=== PATIENT | male | born 1985 | race Caucasian/White ===

== ENCOUNTER → 2018-07-24 | Outpatient (CLI) | payer MEDICAID | END | disposition home or self-care (01) | LOC: PREOP 05:49 | PROVIDERS: ATTEND Surgery | DX: Z01.818 Encounter for other preprocedural examination (principal) ==

== ENCOUNTER 2018-07-31 07:16 | Day surgery (SDC) | payer MEDICAID ==
[~2018-07-31] VITALS: Ht 172.7 cm; Wt 92.1 kg
[2018-07-31] MEDS ORDERED: LACTATED RINGERS 1,000 ML IV ONE (07:28)
[2018-07-31] MEDS ORDERED: LACTATED RINGERS 1,000 ML IV STA (07:49)
[2018-07-31 07:52] VITALS: BP 120/76
--- NOTE | 2018-07-31 08:25 | Progress Note-Pre Operative ---
Pre-Operative Progress Note H&P Reviewed The H&P was reviewed, patient examined and no changes noted. Time Seen by Provider: 08:24 Date H&P Reviewed: Jul 31, 2018 Time H&P Reviewed: 08:23 Pre-Operative Diagnosis: Rectal Bleed RUTHANN PROCTOR DO Jul 31, 2018 08:25
[2018-07-31] MEDS ORDERED: PROPOFOL INJECTION 50 ML IV ONE (09:04)
[2018-07-31] MEDS ORDERED: MIDAZOLAM 2 MG/2 ML (VERSED) VIAL ONE (09:04)
--- OUTSIDE RECORDS SUMMARY | 2018-07-31 09:39 | XMS REPORT ---
Author Author KAREN ALONSO Organization [facility] Address [address] [place] [address] Care Team Providers Care Cad Technician Name Role Phone KAREN ALONSO Unavailable PROBLEMS Type Condition ICD9-CM Code [id number] Code Onset Dates Condition Status SNOMED Code Problem Pain in joint, lower leg 719.46 Active 383320633 ALLERGIES No Known Allergies ENCOUNTERS Encounter Location Date Diagnosis [facility] [id number] [place] [address] Apr, Influenza-like illness R69 [facility] [id number] [place] [address] Nov, Pain in thoracic spine M54.6 [facility] [address] [address] Oct, Pain in thoracic spine M54.6 and Blood in stool K92.1 [place] [id number] [place] [address] [id number] Oct, Blood in stool K92.1 [facility] [id number] [place] [address] 04 Mar, [address] [place] [id number] [place] [id number] Feb, Normal physical exam Z00.00 [place] [id number] [place] [id number] 17 Feb, 2015 Screening cholesterol level Z13.220 ; Encounter for screening for cardiovascular disorders Z13.6 and Physical exam Z00.00 [place] [id number] [place] [address] [id number] August, Dyspepsia 536.8 and TDAP DX V06.[address] [id number] [place] [id number] August, [facility] [address] [facility] [id number] [place] [id number] Apr, [facility] [address] [facility] [id number] [place] [address] Apr, IMMUNIZATIONS No Known Immunizations SOCIAL HISTORY Never Assessed REASON FOR VISIT chest congestion, cough, headache. been sick for 2 days ago. marguerite rees did not have a flu shot this year PLAN OF CARE Activity Details Follow Up prn Reason: VITAL SIGNS Height 69 in 2017-05-19 Weight 198.4 lbs 2017-05-19 Temperature 99.7 degrees Fahrenheit 2017-05-19 Heart Rate 80 bpm 2017-05-19 Respiratory Rate 20 2017-05-19 BMI 29.30 kg/m2 2017-05-19 Blood pressure systolic 116 mmHg 2017-05-19 Blood pressure diastolic 76 mmHg 2017-05-19 MEDICATIONS Medication Instructions Dosage Frequency Start Date End Date Duration Status Anusol HC-1 1 % Externally Twice a day prn 1 application to affected area Oct, Not-Taking Tamiflu 75 MG Orally Twice a day 1 capsule 12h Apr, 5 day(s) Active RESULTS No Results PROCEDURES No Known procedures INSTRUCTIONS MEDICATIONS ADMINISTERED No Known Medications MEDICAL (GENERAL) HISTORY Type Description Date Medical History learning delay Surgical History wisdom tooth extraction unknown
--- OUTSIDE RECORDS SUMMARY | 2018-07-31 09:39 | XMS REPORT ---
Author Author LANCE RAMIREZ Organization [facility] Address [address] [place] [address] Care Team Providers Care Motor Scooter Mechanic Name Role Phone LANCE RAMIREZ Unavailable PROBLEMS Type Condition ICD9-CM Code KBA48-IF Code Onset Dates Condition Status SNOMED Code Problem Pain in joint, lower leg 719.46 Active 327981412 ALLERGIES No Known Allergies ENCOUNTERS Encounter Location Date Diagnosis [facility] [address] [address] Apr, Influenza-like illness R69 [facility] [address] [address] Nov, Pain in thoracic spine M54.6 [facility] [address] [address] Oct, Pain in thoracic spine M54.6 and Blood in stool K92.[address] [id number] Oct, Blood in stool K92.1 [facility] [address] [address] Mar, [address] [id number] Feb, Normal physical exam Z00.[address] [id number] 17 Feb, 2015 Screening cholesterol level Z13.220 ; Encounter for screening for cardiovascular disorders Z13.6 and Physical exam Z00.[address] [id number] August, Dyspepsia 536.8 and TDAP DX V06.[address] [id number] August, [facility] [address] [id number] [place] [id number] Apr, [facility] [address] [id number] [place] [address] Apr, IMMUNIZATIONS No Known Immunizations SOCIAL HISTORY Never Assessed REASON FOR VISIT Blood in stool - wanting lab work, PT has NOT had any blood in his stools for a few days now, PT has also come with a latter for you written from his mother with some concerns- Shen ADRIAN PLAN OF CARE VITAL SIGNS Height 69 in 2016-11-19 Weight 196.4 lbs 2016-11-19 Temperature 97.9 degrees Fahrenheit 2016-11-19 Heart Rate 78 bpm 2016-11-19 Respiratory Rate 18 2016-11-19 BMI 29.00 kg/m2 2016-11-19 Blood pressure systolic 102 mmHg 2016-11-19 Blood pressure diastolic 68 mmHg 2016-11-19 MEDICATIONS Medication Instructions Dosage Frequency Start Date End Date Duration Status Anusol HC-1 1 % Externally Twice a day prn 1 application to affected area Oct, Active RESULTS No Results PROCEDURES No Known procedures INSTRUCTIONS MEDICATIONS ADMINISTERED No Known Medications MEDICAL (GENERAL) HISTORY Type Description Date Medical History learning delay Surgical History wisdom tooth extraction unknown
--- OUTSIDE RECORDS SUMMARY | 2018-07-31 09:39 | XMS REPORT ---
Author Author BRUCE CA Organization [employer] Address Unknown Phone Unavailable Care Team Providers Care Screen Maker Name Role Phone BRUCE CA CP Unavailable Allergies, Adverse Reactions, Alerts Substance Reaction Event Type N.K.D.A. Info Not Available Non Drug Allergy Problems Problem Type Condition Code Onset Dates Condition Status Assessment Screening cholesterol level Z13.220 Active Assessment Encounter for screening for cardiovascular disorders Z13.6 Active Problem Pain in joint, lower leg 719.46 Active Assessment Physical exam Z00.00 Active Medications No Known Medications Procedures Procedure Coding System Code Date COMPREHEN METABOLIC PANEL CPT-4 13246 Mar 11, 2015 LIPID PANEL CPT-4 25692 Mar 11, 2015 COMPLETE CBC W/AUTO DIFF WBC CPT-4 42027 Mar 11, 2015 VENIPUNCT, ROUTINE* CPT-4 30059 Mar 11, 2015 Preventive Care Est Pt. Age 18-39 CPT-4 95344 Mar 11, 2015 Vital Signs Date/Time: Mar 11, 2015 Temperature 98.6 F Weight 203.0 lbs Height 69 in BMI 29.97 Index Blood Pressure Diastolic 80 mmHg Blood Pressure Systolic 142 mmHg Cardiac Monitoring Heart Rate 64 bpm Results Name Result Date Reference Range Unit Abnormality Flag CBC ROUTINE VENIPUNCTURE LIPID PANEL Summary Purpose [employer] Submission
--- OUTSIDE RECORDS SUMMARY | 2018-07-31 09:39 | XMS REPORT ---
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 702774974 Problem Pain in joint, lower leg 719.46 Active 021653847 ALLERGIES No Known Allergies ENCOUNTERS Encounter Location Date Diagnosis [facility] [address] [address] Nov, Bloody stools K92.1 and Bug bite with infection, subsequent encounter W57.XXXD [facility] [address] [address] Oct, Insect bite, initial encounter W57.XXXA and Reaction to insect bite W57.XXXA [facility] [address] [address] Apr, Influenza-like illness R69 [facility] [address] [address] Nov, Pain in thoracic spine M54.6 [facility] [address] [address] Oct, Pain in thoracic spine M54.6 and Blood in stool K92.1 [facility] [address] [id number] Oct, Blood in stool K92.1 [place] [address] [address] Mar, [facility] [address] [id number] Feb, Normal physical exam Z00.00 [facility] [address] [facility] [id number] [place] [id number] 17 Feb, 2015 Screening cholesterol level Z13.220 ; Encounter for screening for cardiovascular disorders Z13.6 and Physical exam Z00.00 [facility] [address] [facility] [id number] [id number] 14 Aug, 2014 Dyspepsia 536.8 and TDAP DX V06.1 [id number] [id number] August, [place] [id number] [id number] Apr, [facility] [address] [facility] [id number] [address] Apr, IMMUNIZATIONS No Known Immunizations SOCIAL HISTORY Never Assessed REASON FOR VISIT PT reports he was told to come here to get checked out and discuss some things. -Dago ADRIAN PLAN OF CARE VITAL SIGNS Height 69 in 2017-11-30 Weight 203.2 lbs 2017-11-30 Temperature 98.1 degrees Fahrenheit 2017-11-30 Heart Rate 103 bpm 2017-11-30 Respiratory Rate 20 2017-11-30 Oximetry 97 % 2017-11-30 BMI 30.00 kg/m2 2017-11-30 Blood pressure systolic 122 mmHg 2017-11-30 Blood pressure diastolic 80 mmHg 2017-11-30 MEDICATIONS Medication Instructions Dosage Frequency Start Date End Date Duration Status Anusol HC-1 1 % Externally Twice a day prn 1 application to affected area Oct, Not-Taking Doxycycline Hyclate 100 mg Orally twice a day 1 capsule 12h Oct, Nov, 14 days Active RESULTS No Results PROCEDURES No Known procedures INSTRUCTIONS MEDICATIONS ADMINISTERED No Known Medications MEDICAL (GENERAL) HISTORY Type Description Date Medical History learning delay Surgical History wisdom tooth extraction unknown
--- OUTSIDE RECORDS SUMMARY | 2018-07-31 09:39 | XMS REPORT ---
Author Author BRUCE CA Organization [employer] Address Unknown Phone Unavailable Care Team Providers Care Rn Wound Name Role Phone BRUCE CA CP Unavailable Allergies, Adverse Reactions, Alerts Substance Reaction Event Type N.K.D.A. Info Not Available Non Drug Allergy Problems Problem Type Condition Code Onset Dates Condition Status Assessment Normal physical exam Z00.00 Active Problem Pain in joint, lower leg 719.46 Active Medications Medication Code System Code Instructions Start Date End Date Status Dosage Pepcid AC [facility] [address] 10 MG Orally Twice a day September 05, 2014 1 tablet as needed Procedures Procedure Coding System Code Date Office Visit, Est Pt., Level 3 CPT-4 79251 Mar 18, 2015 Vital Signs Date/Time: Mar 18, 2015 Temperature 97.1 F Weight 204.2 lbs Height 69 in BMI 30.15 Index Blood Pressure Diastolic 68 mmHg Blood Pressure Systolic 110 mmHg Cardiac Monitoring Heart Rate 94 bpm Results No Known Results Summary Purpose [employer] Submission
--- OUTSIDE RECORDS SUMMARY | 2018-07-31 09:39 | XMS REPORT ---
Author Author LANCE RAMIREZ Organization [facility] Address [address] [place] [address] Care Team Providers Care Fish Fryer Name Role Phone LANCE RAMIREZ Unavailable PROBLEMS Type Condition ICD9-CM Code RZO98-JI Code Onset Dates Condition Status SNOMED Code Problem Pain in joint, lower leg 719.46 Active 477887273 ALLERGIES No Information ENCOUNTERS Encounter Location Date Diagnosis [facility] [address] [address] Apr, Influenza-like illness R69 [facility] [address] [address] Nov, Pain in thoracic spine M54.6 [facility] [address] [address] Oct, Pain in thoracic spine M54.6 and Blood in stool K92.[address] [id number] Oct, Blood in stool K92.1 [facility] [address] [address] Mar, [address] [id number] Feb, Normal physical exam Z00.[address] [id number] 17 Feb, 2015 Screening cholesterol level Z13.220 ; Encounter for screening for cardiovascular disorders Z13.6 and Physical exam Z00.[address] [id number] August, Dyspepsia 536.8 and TDAP DX V06.[address] [id number] August, [facility] [address] [facility] [id number] [place] [id number] Apr, [facility] [address] [facility] [id number] [place] [address] Apr, IMMUNIZATIONS No Known Immunizations SOCIAL HISTORY Never Assessed REASON FOR VISIT Lab (walk-in) PLAN OF CARE VITAL SIGNS MEDICATIONS No Known Medications RESULTS Name Result Date Reference Range TSH 2016-11-24 TSH 2.080 0.450-4.500 CBC 2016-11-24 WBC 4.2 3.4-10.8 RBC 5.45 4.14-5.80 Hemoglobin 16.0 12.6-17.7 Hematocrit 45.1 37.5-51.0 MCV 83 79-97 MCH 29.4 26.6-33.0 MCHC 35.5 31.5-35.7 RDW 12.9 12.3-15.4 Platelets 182 150-379 Neutrophils 46 Lymphs 40 Monocytes 11 Eos 2 Basos 1 Neutrophils (Absolute) 2.0 1.4-7.0 Lymphs (Absolute) 1.7 0.7-3.1 Monocytes(Absolute) 0.5 0.1-0.9 Eos (Absolute) 0.1 0.0-0.4 Baso (Absolute) 0.0 0.0-0.2 Immature Granulocytes 0 Immature Grans (Abs) 0.0 0.0-0.1 LIPID PANEL 2016-11-24 Cholesterol, Total 142 100-199 Triglycerides 111 0-149 HDL Cholesterol 26 >39 VLDL Cholesterol Alfred 22 5-40 LDL Cholesterol Calc 94 0-99 Comment: PROCEDURES Procedure Date Ordered Result Body Site LAB NOT BILLED BY [employer] Nov 24, 2016 INSTRUCTIONS MEDICATIONS ADMINISTERED No Known Medications MEDICAL (GENERAL) HISTORY Type Description Date Medical History learning delay Surgical History wisdom tooth extraction unknown
--- OUTSIDE RECORDS SUMMARY | 2018-07-31 09:39 | XMS REPORT ---
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 273250392 Problem Pain in joint, lower leg 719.46 Active 789433894 ALLERGIES No Known Allergies ENCOUNTERS Encounter Location Date Diagnosis [place] [address] [address] Nov, Bloody stools K92.1 and Bug bite with infection, subsequent encounter W57.XXXD [facility] [address] [address] Oct, Insect bite, initial encounter W57.XXXA and Reaction to insect bite W57.XXXA [facility] [id number] [place] [address] Apr, Influenza-like illness R69 [facility] [id number] [place] [address] Nov, Pain in thoracic spine M54.6 [facility] [address] [address] Oct, Pain in thoracic spine M54.6 and Blood in stool K92.1 [facility] [id number] [place] [id number] Oct, Blood in stool K92.1 [facility] [address] [address] Mar, [facility] [id number] [place] [id number] Feb, Normal physical exam Z00.00 [place] [id number] [id number] 17 Feb, 2015 Screening cholesterol level Z13.220 ; Encounter for screening for cardiovascular disorders Z13.6 and Physical exam Z00.[address] [id number] [id number] 14 Aug, 2014 Dyspepsia 536.8 and TDAP DX V06.1 [place] [id number] [id number] August, [place] [id number] [id number] Apr, [facility] [address] [facility] [id number] [place] [address] Apr, IMMUNIZATIONS Vaccine Route Administration Date Status BENADRYL (DIPHENHY HCL) 50 MG/ML (UP TO 50 MG) IM Intramuscular November 18, 2017 Administered SOCIAL HISTORY Never Assessed REASON FOR VISIT possible spider bite-The patient has a knot on the top of his right shoulder that he thinks may be a spider bite. The place is very sore and hurts. The patient's skin is also very red from head to toe. He is running low grade fever. He woke up with the place on his shoulder yesterday morning and woke up this morning and his skin was all red._ _NGUYỄN Gutierrez PLAN OF CARE Activity Details Follow Up follow with Akash Reason: VITAL SIGNS Height 69 in 2017-11-18 Weight 202.6 lbs 2017-11-18 Temperature 100.2 degrees Fahrenheit 2017-11-18 Heart Rate 128 bpm 2017-11-18 Respiratory Rate 20 2017-11-18 BMI 29.92 kg/m2 2017-11-18 Blood pressure systolic 120 mmHg 2017-11-18 Blood pressure diastolic 66 mmHg 2017-11-18 MEDICATIONS Medication Instructions Dosage Frequency Start Date End Date Duration Status Anusol HC-1 1 % Externally Twice a day prn 1 application to affected area Oct, Not-Taking Doxycycline Hyclate 100 mg Orally twice a day 1 capsule 12h Oct, Nov, 14 days Active RESULTS No Results PROCEDURES Procedure Date Ordered Result Body Site BENADRYL (DIPHENHY HCL) 50 MG/ML (UP TO 50 MG) November 18, 2017 THER/PROPH/DIAG INJ, SC/IM November 18, 2017 INSTRUCTIONS MEDICATIONS ADMINISTERED No Known Medications MEDICAL (GENERAL) HISTORY Type Description Date Medical History learning delay Surgical History wisdom tooth extraction unknown
--- OUTSIDE RECORDS SUMMARY | 2018-07-31 09:40 | XMS REPORT | Continuity of Care Document ---
Author Organization Unknown Address Unknown Allergies There is no data. Medications There is no data. Problems Date Dx Coded Attending Type Code Diagnosis Diagnosed By 05/13/2014 BRUCE CA APRN 719.46 PAIN KNEE Procedures There is no data. Results Test Result Range CBC With Differential/Platelet - 11/24/16 08:12 WBC 4.2 x10E3/uL 3.4-10.8 RBC 5.45 x10E6/uL 4.14-5.80 Hemoglobin 16.0 g/dL 12.6-17.7 Hematocrit 45.1 % 37.5-51.0 MCV 83 fL 79-97 MCH 29.4 pg 26.6-33.0 MCHC 35.5 g/dL 31.5-35.7 RDW 12.9 % 12.3-15.4 Platelets 182 x10E3/uL 150-379 Neutrophils 46 % Lymphs 40 % Monocytes 11 % Eos 2 % Basos 1 % Neutrophils (Absolute) 2.0 x10E3/uL 1.4-7.0 Lymphs (Absolute) 1.7 x10E3/uL 0.7-3.1 Monocytes(Absolute) 0.5 x10E3/uL 0.1-0.9 Eos (Absolute) 0.1 x10E3/uL 0.0-0.4 Baso (Absolute) 0.0 x10E3/uL 0.0-0.2 Immature Granulocytes 0 % Immature Grans (Abs) 0.0 x10E3/uL 0.0-0.1 Comp. Metabolic Panel (14) - 11/24/16 08:12 Glucose, Serum 93 mg/dL 65-99 BUN 18 mg/dL 6-20 Creatinine, Serum 0.92 mg/dL 0.76-1.27 eGFR If NonAfricn Am 110 mL/min/1.73 >59 eGFR If Africn Am 127 mL/min/1.73 >59 BUN/Creatinine Ratio 20 9-20 Sodium, Serum 140 mmol/L 134-144 Potassium, Serum 4.4 mmol/L 3.5-5.2 Chloride, Serum 102 mmol/L 96-106 Carbon Dioxide, Total 22 mmol/L 18-29 Calcium, Serum 9.2 mg/dL 8.7-10.2 Protein, Total, Serum 6.5 g/dL 6.0-8.5 Albumin, Serum 5.0 g/dL 3.5-5.5 Globulin, Total 1.5 g/dL 1.5-4.5 A/G Ratio 3.3 1.2-2.2 Bilirubin, Total 0.5 mg/dL 0.0-1.2 Alkaline Phosphatase, S 69 IU/L 39-117 AST (SGOT) 16 IU/L 0-40 ALT (SGPT) 22 IU/L 0-44 Lipid Panel - 11/24/16 08:12 Cholesterol, Total 142 mg/dL 100-199 Triglycerides 111 mg/dL 0-149 HDL Cholesterol 26 mg/dL >39 VLDL Cholesterol Alfred 22 mg/dL 5-40 LDL Cholesterol Calc 94 mg/dL 0-99 TSH - 11/24/16 08:12 TSH 2.080 uIU/mL 0.450-4.500 Encounters ACCT No. Visit Date/Time Discharge Status Pt. Type Provider Facility Loc./Unit Complaint [id number] 05/13/2014 13:45:00 05/13/2014 23:59:59 CLS Outpatient BRUCE CA APRN [id number] 11/25/2016 08:06:00 Document Registration [id number] 06/28/2018 12:00:00 06/28/2018 23:59:59 CLS Outpatient LANCE RAMIREZ APRN [facility] [place]
--- NOTE | 2018-07-31 09:54 | Progress Note-Post Operative ---
Post-Operative Progess Note Surgeon (s)/Nurse'S Assistant (s) Surgeon RUTHANN PROCTOR DO Nurse'S Assistant: none Pre-Operative Diagnosis Rectal Bleed Post-Operative Diagnosis Colon Polyps TI nodularity Internal Hemorrhoids Anal Fissure Procedure & Operative Findings Date of Procedure 07/31/18 Procedure Performed/Findings Colon with snare Colon with hot bx of TI Anesthesia Type IV sedation by ALL PURPOSE CLERK Estimated Blood Loss Estimated blood loss (mL): scant Specimens/Packing Specimens Removed Cecal polyp Descending colon polyp TI bx RUTHANN PROCTOR DO Jul 31, 2018 09:54
--- NOTE | 2018-07-31 09:56 | Endoscopy Discharge Instruct ---
Endo Procedure/Findings Findings 1.: Polyp 2.: Internal Hemorrhoids 3.: Other Findings (anal fissure) Discharge Instructions - Activity: You might feel a little sleepy until tomorrow. This is due to the medicine you received to relax you. Until tomorrow, you should: NOT drive a car, operate machinery or power tools. NOT drink any alcoholic beverages. NOT make any important decisions or sign importortant papers. Do not return to work until tomorrow, unless otherwise instructed. Resume previous activities tomorrow. Diet: Start by taking liquids. If you tolerate liquids, advance to solid food. make an appointment for one week Notify Physician - If you experience excessive bleeding, unusual abdominal pain, fever, or chest pain, contact your doctor immediately. Follow-Up: - I have received and understand the above instructions and will call my doctor if I have any further questions. Patient Signature Date Nurse Signature Other (Relationship) RUTHANN PROCTOR DO Jul 31, 2018 09:56
[2018-07-31 10:10] VITALS: BP 116/71
[2018-07-31 10:40] VITALS: BP 118/77
[2018-07-31 10:55] VITALS: BP 118/77
--- NOTE | 2018-07-31 12:13 | Anesthesia-General Post-Op ---
MAC Patient Condition Mental Status/LOC: Same as Preop Cardiovascular: Satisfactory Nausea/Vomiting: Absent Respiratory: Satisfactory Pain: Controlled Complications: Absent Post Op Complications Complications None Follow Up Care/Instructions Patient Instructions None needed. Anesthesiology Discharge Order Discharge Order Patient is doing well, no complaints, stable vital signs, no apparent adverse anesthesia problems. No complications reported per nursing. CHERIE KRUEGER CRNA Jul 31, 2018 12:13
--- NOTE | 2018-07-31 16:44 | OPERATIVE REPORT ---
DATE OF SERVICE: PREOPERATIVE DIAGNOSIS: Rectal bleed. POSTOPERATIVE DIAGNOSES: 1. Polyps. 2. Nodular terminal ileum. 3. Internal hemorrhoids. 4. Anal fissure. PROCEDURE: 1. Colonoscopy with snare polypectomy. 2. Colonoscopy with hot biopsy. SURGEON: Aubrey Eric DO. MASTER HEARTH TECHNICIAN: None. ANESTHESIA: IV sedation by WHITE SOURER. SPECIMEN: Two polyps, one from the cecum and one from the descending colon. Biopsy from the terminal ileum. BLOOD LOSS: Scant. FLUIDS: Per anesthesia. POSTOPERATIVE CONDITION: Stable. INDICATION FOR PROCEDURE: The patient is a 32-year-old male who has been having some rectal bleeding and needed workup. FINDINGS: The patient had a polyp in the cecum. He also had one in the descending colon and then a very nodular terminal ileum. Biopsies were done here. He also had anal fissure. PROCEDURE NOTE: After informed consent was obtained, the patient was brought to the endoscopy suite, placed in the bed in left lateral decubitus position. He was administered IV sedation by the WHITE SOURER who then monitored his vitals the entire time, heart rate, blood pressure, pulse ox and the scope was inserted, pushed all the way about 150 cm, able to get to the cecum. In the cecum, right near the appendix, appendiceal orifice noted the polyp, did a snare polypectomy of this and then able to get into the terminal ileum. Terminal ileum was very nodular. Picture was taken. Elected to do hot biopsy in here. Did 2 biopsies and then slowly withdrew the scope insufflating to look circumferentially at the mclaughlin looking at the cecum up the ascending colon to the hepatic flexure, then down the transverse colon, the splenic flexure, into the descending colon. In the descending colon, saw another polyp, did another snare polypectomy of this and then continued down into the sigmoid colon, finally into the rectum, retroflexed the rectal vault, saw some minimal internal hemorrhoids, took a picture of this and then removed the scope and then looked, everted the anal opening and saw an anal fissure at about the 6 o'clock position; if the patient was lying on his back. The patient tolerated the procedure. He was recovered in the endoscopy suite. Job ID: [id number] DocumentID: [id number] Dictated Date: 07/31/2018 11:29:36 Outreach Coordinator Date: 07/31/2018 16:43:47 Dictated By: DO ADELE EARLYD
== END 2018-07-31 10:55 | disposition home or self-care (01) ==
LOC: ENDO 07:16
PROVIDERS: ATTEND Surgery
DX: K63.5 Polyp of colon (principal); K60.2 Anal fissure, unspecified; K64.8 Other hemorrhoids; K63.89 Other specified diseases of intestine; F17.220 Nicotine dependence, chewing tobacco, uncomplicated
CPT/HCPCS: 88305